=== PATIENT | male | born 1995 | race African-American/Black ===

== ENCOUNTER 2021-07-11 17:11 | Emergency (ER) | payer SELFPAY ==
[2021-07-11] MEDS ORDERED: Sodium Chloride 0.9% 1,000 ML IV ONE (19:26)
[2021-07-11] MEDS ORDERED: Ketorolac 30 MG/ML SDV IVPUSH ONE (19:26)
[2021-07-11] MEDS ORDERED: Ondansetron 4 MG/2 ML SDV IVPUSH ONE (19:26)
[2021-07-11] MEDS ORDERED: Alum Hydroxide/Mag Hydroxide 30 ML, Lidocaine 2% 15 ML PO ONE ×2 (19:27)
--- NOTE | 2021-07-11 19:35 | EDM.PDOC ---
ED HPI GENERAL MEDICAL PROBLEM - General Chief Complaint: General Stated Complaint: ALCOHOL Time Seen by Provider: 07/11/21 17:40 Source of Information: Reports: Patient - History of Present Illness INITIAL COMMENTS - FREE TEXT/NARRATIVE: c/o alcohol poisoning from [place] says he has been drinking off-and-on locally for past several weeks, last had vodka at 3:30p says he was in [facility] for one month 1y ago for alcohol issues currently on no meds his girlfriend is from local area, she is , says she got this past September, then said she is due this coming September, still , thinks she may deliver in [place] but is not sure, says he broke up with his girlfriend says he is homeless does have one temp 99.9 here, other temps wnl no had COVID illness or vax, no cough, denies f/c/d, some nausea Abdomen Pain Score (Numeric/FACES): 9 - Related Data Allergies Allergy/AdvReac Type Severity Reaction Status Date / Time No Known Allergies Allergy Verified 07/11/21 18:06 ED ROS GENERAL - Review of Systems Review Of Systems: See Below Constitutional: Reports: No Symptoms HEENT: Reports: No Symptoms Respiratory: Reports: No Symptoms Cardiovascular: Reports: No Symptoms Endocrine: Reports: No Symptoms GI/Abdominal: Reports: Abdominal Pain, Nausea. Denies: Constipation, Diarrhea : Reports: No Symptoms Musculoskeletal: Reports: No Symptoms Skin: Reports: No Symptoms Neurological: Reports: No Symptoms Psychiatric: Reports: No Symptoms Hematologic/Lymphatic: Reports: No Symptoms Immunologic: Reports: No Symptoms ED EXAM, GENERAL - Physical Exam Exam: See Below Exam Limited By: No Limitations General Appearance: Alert, WD/WN, No Apparent Distress Ears: Hearing Grossly Normal Nose: Normal Inspection, Normal Mucosa, No Blood Throat/Mouth: Normal Inspection, Normal Lips, Normal Teeth, Normal Voice, No Airway Compromise Head: Atraumatic, Normocephalic Neck: Normal Inspection, Supple, Non-Tender, Full Range of Motion. No: Lymphadenopathy (R), Lymphadenopathy (L) Respiratory/Chest: No Respiratory Distress, Lungs Clear, Normal Breath Sounds, Chest Non-Tender Cardiovascular: Regular Rate, Rhythm, No Edema, No Murmur GI/Abdominal: Normal Bowel Sounds, Soft, Other (mild tender epigastrium) Back Exam: Normal Inspection, Full Range of Motion, NT Extremities: Normal Inspection, Normal Range of Motion, Non-Tender, No Pedal Edema Neurological: Alert, Oriented, CN II-XII Intact, Normal Cognition, No Motor/Sensory Deficits Psychiatric: Normal Affect, Normal Mood Skin Exam: Warm, Dry, Intact, Normal Color, No Rash Lymphatic: No Adenopathy Course - Vital Signs Last Recorded V/S: Last Vital Signs Temp 37.5 C 07/11/21 19:54 Pulse 120 H 07/11/21 19:54 Resp 18 07/11/21 19:54 BP 134/101 H 07/11/21 19:54 Pulse Ox 96 07/11/21 19:54 - Orders/Labs/Meds Labs: Laboratory Tests 07/11/21 07/11/21 07/11/21 Range/Units 19:40 19:40 19:40 WBC 10.3 H (3.2-10.1) x10-3/uL RBC 5.58 (3.90-5.90) x10(6)uL Hgb 14.1 (12.9-17.7) g/dL Hct 43.2 (38.3-50.1) % MCV 77.5 L (80.8-98.7) fL MCH 25.3 L (27.0-33.3) pg MCHC 32.7 (28.7-35.3) g/dL RDW 16.2 H (12.4-15.0) % Plt Count 416 (117-477) x10(3)uL MPV 6.9 (6.7-11.0) fL Neut % (Auto) 69.7 (40.3-71.8) % Lymph % (Auto) 23.4 (15.8-45.3) % Gaston % (Auto) 6.6 (5.5-15.2) % Eos % (Auto) 0.1 (0.1-6.8) % Baso % (Auto) 0.2 L (0.3-3.8) % Neut # (Auto) 7.2 H (1.7-6.9) x10-3/uL Lymph # (Auto) 2.4 (0.5-4.5) x10-3/uL Gaston # (Auto) 0.7 (0.0-1.2) x10-3/uL Eos # (Auto) 0.0 (0.0-0.6) x10-3/uL Baso # (Auto) 0.0 (0.0-0.3) x10-3/uL Sodium 143 (135-145) mmol/L Potassium 3.8 (3.5-5.3) mmol/L Chloride 103 (100-110) mmol/L Carbon Dioxide 26 (21-32) mmol/L BUN 9 (7-18) mg/dL Creatinine 1.3 (0.70-1.30) mg/dL Est Cr Clr Drug Dosing TNP Estimated GFR (MDRD) > 60 (>60) BUN/Creatinine Ratio 6.9 L (9-20) Glucose 122 H (80-116) mg/dL Calcium 9.0 (8.6-10.2) mg/dL Total Bilirubin 0.5 (0.1-1.3) mg/dL AST 35 H (5-25) IU/L ALT 34 (12-36) U/L Alkaline Phosphatase 74 (56-112) IU/L C-Reactive Protein < 0.2 L (0.5-0.9) mg/dL Total Protein 9.6 H (6.0-8.0) g/dL Albumin 4.3 (3.5-5.2) g/dL Globulin 5.3 g/dL Albumin/Globulin Ratio 0.8 Lipase 214 (73-393) U/L Ethyl Alcohol (<0.03) % Influenza Type A RNA (NEGATIVE) Influenza Type B RNA (NEGATIVE) SARS-CoV-2 RNA (KANG) (NEGATIVE) 07/11/21 07/11/21 Range/Units 19:40 21:50 WBC (3.2-10.1) x10-3/uL RBC (3.90-5.90) x10(6)uL Hgb (12.9-17.7) g/dL Hct (38.3-50.1) % MCV (80.8-98.7) fL MCH (27.0-33.3) pg MCHC (28.7-35.3) g/dL RDW (12.4-15.0) % Plt Count (117-477) x10(3)uL MPV (6.7-11.0) fL Neut % (Auto) (40.3-71.8) % Lymph % (Auto) (15.8-45.3) % Gaston % (Auto) (5.5-15.2) % Eos % (Auto) (0.1-6.8) % Baso % (Auto) (0.3-3.8) % Neut # (Auto) (1.7-6.9) x10-3/uL Lymph # (Auto) (0.5-4.5) x10-3/uL Gaston # (Auto) (0.0-1.2) x10-3/uL Eos # (Auto) (0.0-0.6) x10-3/uL Baso # (Auto) (0.0-0.3) x10-3/uL Sodium (135-145) mmol/L Potassium (3.5-5.3) mmol/L Chloride (100-110) mmol/L Carbon Dioxide (21-32) mmol/L BUN (7-18) mg/dL Creatinine (0.70-1.30) mg/dL Est Cr Clr Drug Dosing Estimated GFR (MDRD) (>60) BUN/Creatinine Ratio (9-20) Glucose (80-116) mg/dL Calcium (8.6-10.2) mg/dL Total Bilirubin (0.1-1.3) mg/dL AST (5-25) IU/L ALT (12-36) U/L Alkaline Phosphatase (56-112) IU/L C-Reactive Protein (0.5-0.9) mg/dL Total Protein (6.0-8.0) g/dL Albumin (3.5-5.2) g/dL Globulin g/dL Albumin/Globulin Ratio Lipase (73-393) U/L Ethyl Alcohol 0.25 H* (<0.03) % Influenza Type A RNA Negative (NEGATIVE) Influenza Type B RNA Negative (NEGATIVE) SARS-CoV-2 RNA (KANG) Negative (NEGATIVE) Meds: Medications Discontinued Medications Generic Name Dose Route Start Last Admin Trade Name Freq PRN Reason Stop Dose Admin Al Hydroxide/Mg Hydroxide 30 0 ml 07/11/21 19:27 07/11/21 19:49 ml/ Lidocaine HCl 15 ml PO 07/11/21 19:28 30 ml ONETIME ONE Administration Sodium Chloride 1,000 mls @ 999 mls/hr 07/11/21 19:26 07/11/21 20:08 Normal Saline IV 07/11/21 20:26 999 mls/hr .BOLUS ONE Administration Ketorolac Tromethamine 30 mg 07/11/21 19:26 07/11/21 20:10 Ketorolac 30 Mg/Ml Sdv IVPUSH 07/11/21 19:27 30 mg ONETIME ONE Administration Ondansetron HCl 4 mg 07/11/21 19:26 07/11/21 20:08 Ondansetron 4 Mg/2 Ml Sdv IVPUSH 07/11/21 19:27 4 mg ONETIME ONE Administration - Re-Assessments/Exams Free Text/Narrative Re-Assessment/Exam: 07/11/21 23:20 pt remained stable in ED, he had intermittent elevated HR, did improve after Toradol normal diff, was given one liter of NS no SI/HI pt with cognitive issues, story changes RN did speak with his girlfriend, the two of them still are on speaking terms Departure - Departure Time of Disposition: 23:25 Disposition: Home, Self-Care 01 Condition: Good Clinical Impression: Acute viral syndrome, Flu-like symptoms, Low grade fever, Alcohol abuse - Discharge Information *PRESCRIPTION DRUG MONITORING PROGRAM REVIEWED*: Not Applicable *COPY OF PRESCRIPTION DRUG MONITORING REPORT IN PATIENT CARMELITA: Not Applicable Instructions: Viral Illness, Adult, Alcohol Use Disorder Referrals: PCP,None [Primary Care Provider] - Forms: ED Department Discharge Additional Instructions: You have a low grade fever, although fortunately you do not have the COVID virus or influenza virus. Yet, you do have a respiratory virus in the flu family. For fever and discomfort, take acetaminophen 325 mg 2 tabs 4 times a day for 3-5 days. Get adequate rest. Avoid alcohol. Maintain fluids and nutrition. You can contact an alcohol treatment program in one week directly for admission after you recover from the virus, if you would like to receive treatment. You should see a primary care provider in 5 days for further recommendations. Sepsis Event Note (ED) - Focused Exam Vital Signs: Vital Signs Temp Pulse Resp BP Pulse Ox 07/11/21 19:54 37.5 C 120 H 18 134/101 H 96 07/11/21 18:00 37.7 C 115 H 18 144/92 H 98
[2021-07-11 22:33] LABS: CORONAVIRUS COVID-19 NAA NEGATIVE (NEGATIVE)
== END 2021-07-11 23:33 | disposition home or self-care (01) ==
LOC: FB.ED 17:11
DX: B34.9 Viral infection, unspecified (principal); J11.1 Influenza due to unidentified influenza virus with other respiratory manifestations; F10.10 Alcohol abuse, uncomplicated; Z20.822 Contact with and (suspected) exposure to COVID-19; Y90.5 Blood alcohol level of 100-119 mg/100 ml
CPT/HCPCS: 0240U; 36415; 80053; 80307; 83690; 85025; 86140; 96374; 96375; 99284; A9270; J1885; J2405; J7030